=== PATIENT | female | born 1965 | race Caucasian/White ===

== ENCOUNTER 2018-08-09 14:05 | Observation (INO) | payer SELFPAY, OTHER ==
[2018-08-09] MEDS: ASPIRIN 325 MG TAB PO (14:58)
[2018-08-09] MEDS: NITROGLYCERIN 2% 1 GM OINT PKT TD (14:59)
[2018-08-09 15:08] LABS: ADD MAN DIFF? NO
[2018-08-09 15:10] LABS: BASOPHILS % 0.4 % (0.0-2.0); EOSINOPHILS # 0.3 10^3/ul (0.0-0.5); EOSINOPHILS % 4.6 % (0.0-7.0); HEMATOCRIT 43.9 % (37.0-47.0); HEMOGLOBIN 14.6 g/dl (12.0-16.0); LYMPHOCYTES # 1.9 10^3/ul (0.8-2.9); LYMPHOCYTES % 27.7 % (15.0-51.0); MEAN CORPUSCULAR HEMOGLOBIN 28.6 pg (29.0-33.0); MEAN CORPUSCULAR HGB CONC 33.3 g/dl (32.0-37.0); MEAN CORPUSCULAR VOLUME 86.1 fl (82.0-101.0); MEAN PLATELET VOLUME 12.1 fl (7.4-10.4); MONOCYTE # 0.6 10^3/ul (0.3-0.9); MONOCYTES % 8.5 % (0.0-11.0); NEUTROPHIL # 4.1 10^3/ul (1.6-7.5); NEUTROPHILS % 58.7 % (39.0-77.0); PLATELET COUNT 249 10^3/UL (140-415); RED CELL DISTRIBUTION WIDTH 13.2 % (11.5-14.5)
[2018-08-09 15:10] LABS: WHITE BLOOD COUNT 6.9 10^3/ul (4.8-10.8)
[2018-08-09 15:27] LABS: ALANINE AMINOTRANSFERASE 34 IU/L (13-69); ALBUMIN 4.3 g/dl (3.3-4.9); ALKALINE PHOSPHATASE 99 IU/L (42-121); ANION GAP 12 (8-16); ASPARTATE AMINO TRANSFERASE 31 IU/L (15-46); BILIRUBIN,INDIRECT 0.4 mg/dl (0-1.1); BILIRUBIN,TOTAL 0.4 mg/dl (0.2-1.3); BLOOD UREA NITROGEN 9 mg/dl (7-20); CALCIUM 9.1 mg/dl (8.4-10.2); CARBON DIOXIDE 27 mmol/L (21-31); CHLORIDE 107 mmol/L (97-110); CREATININE 0.59 mg/dl (0.44-1.00); GLUCOSE 148 mg/dl (70-220); POTASSIUM 3.6 mmol/L (3.5-5.1); SODIUM 142 mmol/L (135-144); TOTAL PROTEIN 8.2 g/dl (6.1-8.1)
[2018-08-09 15:38] LABS: B-TYPE NATRIURETIC PEPTIDE 26 PG/ML (0-125); TROPONIN-I < 0.012 ng/ml (0.000-0.120)
[2018-08-09] MEDS ORDERED: LORAZEPAM 2 MG INJ IV (17:00)
[2018-08-09] MEDS ORDERED: ONDANSETRON 4 MG INJ IV (17:00)
[2018-08-09] MEDS ORDERED: NA PHOSPHATE/BIPHOS 133 ML ENEMA PR (17:00)
[2018-08-09] MEDS ORDERED: ALBUTEROL/IPRATROPIUM (NEB) 3 ML AMP HHN (17:00)
[2018-08-09] MEDS ORDERED: MAGNESIUM HYDROXIDE 30ML CUP PO (17:00)
[2018-08-09] MEDS ORDERED: NACL 0.9% 3 ML SYG IV (17:00)
[2018-08-09] MEDS ORDERED: ACETAMINOPHEN 325 MG TAB PO (17:00)
[2018-08-09] MEDS ORDERED: DOCUSATE SODIUM 100 MG CAP PO (17:00)
[2018-08-09] MEDS ORDERED: morphine 2 MG INJ IV (17:00)
[2018-08-09] MEDS ORDERED: NITROGLYCERIN (SL) 0.4 MG TAB SL (17:00)
[2018-08-09 17:17] LABS: FREE T4 (FREE THYROXINE) 0.95 ng/dl (0.64-1.79)
[2018-08-09 17:22] LABS: CREATINE KINASE 62 IU/L (23-200)
[2018-08-09] MEDS ORDERED: DEXTROSE 50% 50 ML SYRINGE IV ×2 (17:30)
[2018-08-09] MEDS ORDERED: GLUCOSE GEL 15 GRAM TUBE PO ×2 (17:30)
[2018-08-09] MEDS ORDERED: GLUCAGON 1 MG INJ IM (17:30)
[2018-08-09] MEDS ORDERED: GLUCOSE GEL 15 GRAM TUBE BUCCAL (17:30)
[2018-08-09 17:36] LABS: CK-MB 0.43 ng/ml (0.0-2.4); TROPONIN-I < 0.012 ng/ml (0.000-0.120)
[2018-08-09 17:45] LABS: CK INDEX 0.7
[2018-08-09] MEDS: INSULIN ASPART [NOVOLOG] 3 ML PEN SC (21:00)
[2018-08-09] MEDS: ACETAMINOPHEN 325 MG TAB PO (22:12)
[2018-08-09] MEDS: SOD CHLORIDE 0.45% 1,000 ML IV (22:13)
[2018-08-09] MEDS: HEPARIN 5,000 UNIT/0.5 ML VIAL SC (22:18)
[2018-08-09 23:08] LABS: CREATINE KINASE 51 IU/L (23-200)
[2018-08-09 23:22] LABS: CK INDEX 0.8; TROPONIN-I < 0.012 ng/ml (0.000-0.120)
[2018-08-10] MEDS: INSULIN ASPART [NOVOLOG] 3 ML PEN SC ×4 (01:00→13:00)
[2018-08-10] MEDS: ACCU-CHEK XX (02:00)
[2018-08-10] MEDS: HYDROCODONE/APAP (5/325) TAB PO (03:10)
[2018-08-10] MEDS: hydrALAzine 20 MG INJ IV (05:15)
[2018-08-10] MEDS: ONDANSETRON 4 MG INJ IV (05:58)
[2018-08-10 07:11] LABS: ADD MAN DIFF? NO
[2018-08-10 07:21] LABS: BASOPHILS % 0.6 % (0.0-2.0); EOSINOPHILS # 0.3 10^3/ul (0.0-0.5); EOSINOPHILS % 4.2 % (0.0-7.0); HEMATOCRIT 41.9 % (37.0-47.0); HEMOGLOBIN 13.9 g/dl (12.0-16.0); LYMPHOCYTES # 1.9 10^3/ul (0.8-2.9); LYMPHOCYTES % 28.7 % (15.0-51.0); MEAN CORPUSCULAR HEMOGLOBIN 28.5 pg (29.0-33.0); MEAN CORPUSCULAR HGB CONC 33.2 g/dl (32.0-37.0); MEAN CORPUSCULAR VOLUME 85.9 fl (82.0-101.0); MEAN PLATELET VOLUME 11.8 fl (7.4-10.4); MONOCYTE # 0.6 10^3/ul (0.3-0.9); MONOCYTES % 9.1 % (0.0-11.0); NEUTROPHIL # 3.9 10^3/ul (1.6-7.5); NEUTROPHILS % 57.1 % (39.0-77.0); PLATELET COUNT 240 10^3/UL (140-415); RED BLOOD COUNT 4.88 10^6/ul (4.20-5.40); RED CELL DISTRIBUTION WIDTH 13.4 % (11.5-14.5)
[2018-08-10 07:21] LABS: WHITE BLOOD COUNT 6.7 10^3/ul (4.8-10.8)
[2018-08-10 07:39] LABS: HEMOGLOBIN A1C 6.3 % (0-5.9)
[2018-08-10 07:45] LABS: ANION GAP 12 (8-16); BLOOD UREA NITROGEN 8 mg/dl (7-20); CARBON DIOXIDE 26 mmol/L (21-31); CHLORIDE 107 mmol/L (97-110); CREATININE 0.55 mg/dl (0.44-1.00); GLUCOSE 114 mg/dl (70-220); MAGNESIUM 2.1 mg/dl (1.7-2.5); PHOSPHORUS 3.7 mg/dl (2.5-4.9); POTASSIUM 3.5 mmol/L (3.5-5.1); SODIUM 141 mmol/L (135-144)
[2018-08-10 07:48] LABS: CHOL/HDL RATIO 3.6 RATIO; HDL CHOLESTEROL 52 mg/dl (37-92); LDL CHOLESTEROL,CALCULATED 116 mg/dl; TRIGLYCERIDES 112 mg/dl (0-149)
[2018-08-10 07:48] LABS: CHOLESTEROL 190 mg/dl (100-200)
[2018-08-10] MEDS: ASPIRIN (EC) 325 MG TAB PO (09:28)
[2018-08-10] MEDS: SOD CHLORIDE 0.45% 1,000 ML IV (09:29)
[2018-08-10] MEDS: HEPARIN 5,000 UNIT/0.5 ML VIAL SC (09:29)
[2018-08-10] MEDS: AMLODIPINE 2.5 MG TAB PO (13:14)
[2018-08-10] MEDS: ACETAMINOPHEN 325 MG TAB PO (14:46)
== END 2018-08-10 17:40 | disposition home or self-care (01) ==
LOC: E/R 14:05 → TEL 16:48
DX: I10 Essential (primary) hypertension (principal); E11.9 Type 2 diabetes mellitus without complications; I25.10 Atherosclerotic heart disease of native coronary artery without angina pectoris
CPT/HCPCS: 36415; 71045; 80048; 80053; 80061; 82550; 82553; 82962; 83036; 83735; 83880; 84100; 84439; 84443; 84484; 85025; 93005; 93306; 99285-25; G0378